=== PATIENT | female | born 1960 | race Caucasian/White ===

== ENCOUNTER → 2017-11-05 10:25 | Outpatient (CLI) | payer OTHER, SELFPAY ==
--- NOTE | 2017-11-05 | DI.CT.S_ITS ---
PROCEDURE: CT CERVICAL SPINE WO CON INDICATIONS: Cervicalgia TECHNIQUE: Noncontrast 3 mm thick sections acquired from the skull base to the T4 level. Sagittal and coronal reformats were then constructed. For radiation dose reduction, the following was used: automated exposure control, adjustment of mA and/or kV according to patient size. COMPARISON: [facility], CR, SPINE CERVICAL MIN 4VW, 02/11/2016, 8:44. [facility], CT, T-SPINE WITHOUT CONTRAST, 10/02/2012, 14:10. [facility], RF, CERVICAL MBB, 10/15/2017, 8:57. [facility], RF, CERVICAL FACET, 09/03/2017, 7:36. [facility], MR, C-SPINE WITHOUT CONTRAST, 09/23/2012, 8:32. [facility] [place], CR, XR CERVICAL SPINE WITH OBLIQUES, 08/01/2017, 9:36. FINDINGS: Image quality: Excellent. Bones: Straightening of cervical curvature. There is grade 1 anterolisthesis of C3 over C4. No fractures or dislocations. Mild degenerative disc disease with posterior disc bulge at C3-C4, C4-C5 and C5-C6. There is severe facet arthropathy at C3-C4 and C4-C5 on the right, and mild facet arthropathy in cervical spine at several other levels bilaterally. Visualized superior ribs are intact. Soft tissues: A 1.6 x 1.0 cm irregular groundglass density is noted in the left upper lobe anteriorly, most likely secondary to subpleural scarring/atelectasis. Prevertebral soft tissues are normal in thickness. No paravertebral hematomas. No apical pneumothoraces. IMPRESSION: 1. Severe right C3-C4 and C4-C5 facet arthropathy. 2. Mild degenerative disc disease. 3. A 1.6 x 1.0 cm irregular groundglass density in the left upper lobe, most likely secondary to subpleural scarring/atelectasis but a followup CT in 3 months is suggested. Dictated by: Abby Garcia M.D. on 11/05/2017 at 14:23 Approved by: Abby Garcia M.D. on 11/06/2017 at 9:46
== END ==
PROVIDERS: Family Provider Family Medicine; PCP Family Medicine; Visit Provider Orthopaedic Surgery
DX: M47.812 Spondylosis without myelopathy or radiculopathy, cervical region (principal); M50.30 Other cervical disc degeneration, unspecified cervical region; R91.8 Other nonspecific abnormal finding of lung field
CPT/HCPCS: 72125

== ENCOUNTER → 2017-11-09 14:07 | Outpatient (CLI) | payer OTHER, SELFPAY ==
--- NOTE | 2017-11-09 | DI.CT.S_ITS ---
PROCEDURE: CT CHEST W CON INDICATIONS: PULMONARY NODULE TECHNIQUE: After the administration of intravenous contrast, 5 mm thick sections acquired from the pulmonary apices to the posterior costophrenic angles. 7 mm thick coronal and sagittal MIP reformats were acquired. For radiation dose reduction, the following was used: automated exposure control, adjustment of mA and/or kV according to patient size. COMPARISON: [facility], CT, CT CERVICAL SPINE WO [facility], 11/05/2017, 10:48. FINDINGS: Image quality: Excellent. Lungs and pleura: No acute air space opacities. The radiodensity seen in the anterior left upper lobe on prior CT cervical spine is no longer present, presumably resolved atelectasis. Stranding densities are present at the lung bases, likely atelectasis or scarring. No pleural effusions or pneumothorax. Central and peripheral airways are patent and normal in caliber. Mediastinum: Heart size is normal. No pericardial effusion. No mediastinal or hilar adenopathy by size criteria. Thoracic aorta and central pulmonary arteries are normal in size. Esophagus is normal in caliber. No hiatal hernia. Bones and chest wall: No suspicious bony lesions. No vertebral body compression fractures. No axillary or supraclavicular adenopathy by size criteria. Thyroid gland appears normal. Abdomen: Visualized upper abdominal solid organs appear normal. Upper abdominal bowel loops are normal in caliber. Small splenule. IMPRESSION: Normal CT chest, left upper lobe density having resolved since prior CT. Mild scarring or atelectasis at the lung bases. Dictated by: Yobany Leong M.D. on 11/09/2017 at 15:06 Approved by: Yobany Leong M.D. on 11/09/2017 at 15:15
== END ==
PROVIDERS: PCP Family Medicine; Visit Provider Family Medicine
DX: R91.1 Solitary pulmonary nodule (principal)
CPT/HCPCS: 71260; Q9967

== ENCOUNTER → 2018-03-22 16:38 | Outpatient (CLI) | payer OTHER, SELFPAY ==
--- NOTE | 2018-03-22 16:41 | DI.MRI.S_ITS ---
PROCEDURE: MR SHOULDER LT WO CON INDICATIONS: PAIN IN LEFT SHOULDER TECHNIQUE: Noncontrast oblique coronal T2 fast spin echo with fat saturation, oblique sagittal T1 spin echo and T2 fast spin echo with fat saturation, axial T1 spin echo and T2 fast spin echo with fat saturation through the shoulder. COMPARISON: [facility], , SHOULDER WITHOUT CONTRAST, 02/22/2016, 16:32. FINDINGS: Image quality: Excellent. Rotator cuff: There is tendinosis and intrasubstance partial-thickness tear involving distal supraspinatus near its insertion on humeral head with extension to the level of the musculotendinous junction. Tendinosis and low-grade bursal surface partial-thickness tear involving distal infraspinatus is seen at its insertion on humeral head. There is distal subscapularis tendinosis. No full-thickness rotator cuff tendon rupture. Sagittal images demonstrate mild supraspinatus muscle atrophy. Bones and bursae: No bone marrow contusions or fractures moderate acromioclavicular joint osteoarthritis is seen. The acromion demonstrates conventional anatomy, without an os acromiale. No pathologic subacromial-subdeltoid or subcoracoid bursal fluid is present. Capsule and soft tissues: In the absence of intra-articular contrast, the glenohumeral ligaments appear intact. There is signal abnormality and contour irregularity involving superior anterior labrum at one to 3:00 position suggestive of superior anterior labral tear. The long head of the biceps tendon demonstrates normal location and morphology. The rotator interval appears normal, without fibrosis. The coracohumeral ligament is normal in thickness. IMPRESSION: 1. Tendinosis and low to moderate grade intrasubstance partial-thickness involving distal supraspinatus extending to musculotendinous junction. Tendinosis and low-grade bursal surface partial-thickness involving distal infraspinatus. Distal subscapularis tendinosis. Mild supraspinatus muscle atrophy. 2. Suggestion of focal superior anterior labral tear from one to 3:00 position. 3. Moderate acromioclavicular joint osteoarthritis. Mild glenohumeral joint osteoarthritis. Dictated by: Steven Pratt M.D. on 03/22/2018 at 17:45 Approved by: Steven Pratt M.D. on 03/22/2018 at 17:49
== END ==
PROVIDERS: PCP Family Medicine; Visit Provider Physical Medicine & Rehabilitation
DX: M75.112 Incomplete rotator cuff tear or rupture of left shoulder, not specified as traumatic (principal); M25.512 Pain in left shoulder; M19.012 Primary osteoarthritis, left shoulder
CPT/HCPCS: 73221

== ENCOUNTER 2023-01-05 18:27 | Emergency (ER) | payer OTHER, SELFPAY ==
[2023-01-05 18:33] VITALS: BP 169/85; PULSE 83; RESP 16; TEMP 36.4; O2SAT 97; BMI 25.0
--- NOTE | 2023-01-05 20:00 | PC.NURSE ---
pt had diverticulitis earlier this month and took the prescribed antibiotics that abd pain improved but the back pain did not now the back pain is more intense
--- NOTE | 2023-01-05 21:10 | ED_ITS ---
HPI - Back Pain/Injury <Birdie Lopez MD - Last Filed: 01/15/23 18:21> General Chief Complaint: Back Pain/Injury Stated Complaint: back pain Time Seen by Provider: 01/05/23 19:24 History of Present Illness HPI Narrative: 62-year-old woman with back and abdominal pain since December 25, was diagnosed with diverticulitis on January 01 and has been on Augmentin after being seen at [facility]. CT scan of the time indicated only diverticulitis according to the patient. She is had small amounts of stool with moderate constipation. Her main complaint at this point is more back pain approximately T10 level with pain radiating out in a dermatomal distribution on the right side and over the last 24 hours is now noticing numbness in that same dermatomal distribution. There are no skin rashes to suggest any type of developing zoster. She denies fever or cough. No dysuria. She has not noticed much change in overall symptoms since starting the Augmentin. Related Data Previous Rx's Medication Instructions Recorded gabapentin 300 mg capsule 300 mg PO BEDTIME #30 caps 01/06/23 lidocaine 5 % topical patch 1 patch topical DAILY PRN pain 01/06/23 (scale score 4-6) #30 ea prednisone 20 mg tablet 40 mg PO DAILY #10 tabs 01/06/23 Allergies Allergy/AdvReac Type Severity Reaction Status Date / Time No Known Drug Allergies Allergy Verified 01/05/23 18:39 Review of Systems <Birdie Lopez MD - Last Filed: 01/15/23 18:21> Review of Systems Narrative: Pertinent positive and negative findings as per HPI Exam <Birdie Lopez MD - Last Filed: 01/15/23 18:21> Initial Vital Signs Initial Vital Signs: Vital Signs Temperature 97.6 F 01/05/23 18:33 Pulse Rate 83 01/05/23 18:33 Respiratory Rate 16 01/05/23 18:33 Blood Pressure 169/85 H 01/05/23 18:33 Pulse Oximetry 97 01/05/23 18:33 Oxygen Delivery Method Room Air 01/05/23 18:33 General: Healthy appearing, in no acute distress. Able to give a complete and coherent history. Well-nourished well-developed HEENT: Moist mucous membranes, normal sclera with reactive pupils, Respiratory: Lungs are clear to auscultation, no wheezing no rales no rhonchi. Full and symmetrical air movement Cardiac: Regular rate and rhythm no murmurs no bruits Abdomen: Soft, nontender, good bowel tones, no flank pain. She has point tenderness at approximately T10 with pain along T10 dermatome on the right side. There are no skin changes Skin: Warm and dry, no rashes Neurologic: Grossly neurologically intact with no obvious asymmetries or abnormalities Extremities: No trauma, well perfused Psych: Cooperative, appropriate insight and affect <Galilea Powell DO - Last Filed: 01/06/23 12:26> Initial Vital Signs Initial Vital Signs: Vital Signs Temperature 97.6 F 01/05/23 18:33 Pulse Rate 83 01/05/23 18:33 Respiratory Rate 16 01/05/23 18:33 Blood Pressure 169/85 H 01/05/23 18:33 Pulse Oximetry 97 01/05/23 18:33 Oxygen Delivery Method Room Air 01/05/23 18:33 Course <Birdie Lopez MD - Last Filed: 01/15/23 18:21> Orders Ordered: Discontinued Medications Hydromorphone HCl (Hydromorphone 0.5 Mg Inj) 0.5 mg IV Q15MIN PRN PRN Reason: Pain, Last Admin: 01/05/23 22:56 Dose: 0.5 mg Documented By: BOB Hydromorphone HCl (Hydromorphone 0.5 Mg Inj) 0.5 mg IV NOW ONE Stop: 01/06/23 07:13 Last Admin: 01/06/23 07:20 Dose: 0.5 mg Documented By: BOB Hydromorphone HCl (Hydromorphone 0.5 Mg Inj) 0.5 mg IV NOW ONE Stop: 01/06/23 09:59 Last Admin: 01/06/23 10:02 Dose: 0.5 mg Documented By: YANELIS Sodium Chloride (Normal Saline 0.9%) 1,000 mls @ 1,000 mls/hr IV BOLUS ONE Stop: 01/05/23 22:18 Last Infusion: 01/05/23 22:47 Dose: 0 mls/hr Documented By: Admin: 01/05/23 21:40 Dose: 1,000 mls/hr Documented By: SAMUEL Ketorolac Tromethamine (Ketorolac 30 Mg/Ml Vial) 15 mg IV NOW ONE Stop: 01/05/23 21:20 Last Admin: 01/05/23 21:40 Dose: 15 mg Documented By: SAMUEL Vital Signs Vital signs: Vital Signs - 8 hr 01/06/23 06:05 01/06/23 06:04 01/06/23 09:18 Pulse Rate 55 L 55 L 68 Respiratory Rate 18 20 20 Blood Pressure 116/71 113/69 Blood Pressure [Left Arm] 116/71 Pulse Oximetry 97 97 94 Oxygen Delivery Method Room Air Room Air 01/06/23 09:30 Pulse Rate 74 Respiratory Rate Blood Pressure 112/68 Blood Pressure [Left Arm] Pulse Oximetry 95 Oxygen Delivery Method <Galilea Powell DO - Last Filed: 01/06/23 12:26> Orders Ordered: Discontinued Medications Hydromorphone HCl (Hydromorphone 0.5 Mg Inj) 0.5 mg IV Q15MIN PRN PRN Reason: Pain, Last Admin: 01/05/23 22:56 Dose: 0.5 mg Documented By: BOB Hydromorphone HCl (Hydromorphone 0.5 Mg Inj) 0.5 mg IV NOW ONE Stop: 01/06/23 07:13 Last Admin: 01/06/23 07:20 Dose: 0.5 mg Documented By: BOB Hydromorphone HCl (Hydromorphone 0.5 Mg Inj) 0.5 mg IV NOW ONE Stop: 01/06/23 09:59 Last Admin: 01/06/23 10:02 Dose: 0.5 mg Documented By: YANELIS Sodium Chloride (Normal Saline 0.9%) 1,000 mls @ 1,000 mls/hr IV BOLUS ONE Stop: 01/05/23 22:18 Last Infusion: 01/05/23 22:47 Dose: 0 mls/hr Documented By: Admin: 01/05/23 21:40 Dose: 1,000 mls/hr Documented By: SAMUEL Ketorolac Tromethamine (Ketorolac 30 Mg/Ml Vial) 15 mg IV NOW ONE Stop: 01/05/23 21:20 Last Admin: 01/05/23 21:40 Dose: 15 mg Documented By: SAMUEL Vital Signs Vital signs: Vital Signs - 8 hr 01/06/23 06:05 01/06/23 06:04 01/06/23 09:18 Pulse Rate 55 L 55 L 68 Respiratory Rate 18 20 20 Blood Pressure 116/71 113/69 Blood Pressure [Left Arm] 116/71 Pulse Oximetry 97 97 94 Oxygen Delivery Method Room Air Room Air 01/06/23 09:30 Pulse Rate 74 Respiratory Rate Blood Pressure 112/68 Blood Pressure [Left Arm] Pulse Oximetry 95 Oxygen Delivery Method MDM - Back Pain/Injury <Birdie Lopez MD - Last Filed: 01/15/23 18:21> Lab Data 01/05/23 21:35 01/05/23 21:35 Labs: Lab Results 01/05/23 01/05/23 01/05/23 Range/Units 21:35 21:35 21:35 WBC 8.8 (4.5-11.0) X10^3/uL RBC 4.40 (4.0-5.2) X10^6/uL Hgb 13.4 (12.0-16.0) g/dL Hct 39.0 (36-46) % MCV 88.5 (80-100) fL MCH 30.4 (26-34) PG MCHC 34.3 (30-36) % RDW 12.4 (11.6-14.8) % Plt Count 332 (150-400) X10^3/uL Neut % (Auto) 42.2 L (50-75) % Lymph % (Auto) 44.1 H (25-40) % [place] % (Auto) 7.3 (3-14) % Eos % (Auto) 5.1 H (2-4) % Baso % (Auto) 1.3 (0-2) % Neut # (Auto) 3700 (2459-4442) /uL Lymph # (Auto) 3900 (7018-6310) /uL [place] # (Auto) 600 (0-900) /uL Eos # (Auto) 400 (0-450) /uL Baso # (Auto) 100 (0-100) /uL ESR 8 (0-20) MM/HR Sodium (137-145) mmol/L Potassium (3.4-5.1) mmol/L Chloride (98-107) mmol/L Carbon Dioxide (22-32) mmol/L BUN (7-17) mg/dL Creatinine (0.52-1.04) mg/dL Estimated GFR (>60) mL/min BUN/Creatinine Ratio (6-22) Glucose (80-110) mg/dL Lactate (0.7-2.1) mmol/L Calcium (8.4-10.2) mg/dL Total Bilirubin (0.2-1.3) mg/dL AST (14-36) IU/L ALT (<35) IU/L Alkaline Phosphatase (38-126) U/L C-Reactive Protein < 0.5 (<1.0) mg/dL Total Protein (6.3-8.2) g/dL Albumin (3.5-5.0) g/dL Globulin (1.7-4.1) g/dL Albumin/Globulin Ratio (1.0-2.8) Procalcitonin (<0.5) ng/mL 01/05/23 01/05/23 Range/Units 21:35 21:35 WBC (4.5-11.0) X10^3/uL RBC (4.0-5.2) X10^6/uL Hgb (12.0-16.0) g/dL Hct (36-46) % MCV (80-100) fL MCH (26-34) PG MCHC (30-36) % RDW (11.6-14.8) % Plt Count (150-400) X10^3/uL Neut % (Auto) (50-75) % Lymph % (Auto) (25-40) % [place] % (Auto) (3-14) % Eos % (Auto) (2-4) % Baso % (Auto) (0-2) % Neut # (Auto) (1241-2214) /uL Lymph # (Auto) (9245-4397) /uL [place] # (Auto) (0-900) /uL Eos # (Auto) (0-450) /uL Baso # (Auto) (0-100) /uL ESR (0-20) MM/HR Sodium 137 (137-145) mmol/L Potassium 4.0 (3.4-5.1) mmol/L Chloride 103 (98-107) mmol/L Carbon Dioxide 27 (22-32) mmol/L BUN 16 (7-17) mg/dL Creatinine 0.65 (0.52-1.04) mg/dL Estimated GFR > 60 (>60) mL/min BUN/Creatinine Ratio 24.6 H (6-22) Glucose 94 (80-110) mg/dL Lactate 0.7 (0.7-2.1) mmol/L Calcium 9.0 (8.4-10.2) mg/dL Total Bilirubin 0.5 (0.2-1.3) mg/dL AST 28 (14-36) IU/L ALT 26 (<35) IU/L Alkaline Phosphatase 64 (38-126) U/L C-Reactive Protein (<1.0) mg/dL Total Protein 7.5 (6.3-8.2) g/dL Albumin 4.3 (3.5-5.0) g/dL Globulin 3.2 (1.7-4.1) g/dL Albumin/Globulin Ratio 1.3 (1.0-2.8) Procalcitonin 0.04 (<0.5) ng/mL Urine Dip Bedside Urine Glucose Negative Bedside Urine Bilirubin - Negative Bedside Urine Ketone - Negative Urine Specific [place] 1.01 Bedside Urine Occult Blood - Negative Bedside Urine pH 6 Bedside Urine Protein - Negative Bedside Urine Urobilinogen - Negative Bedside Urine Nitrite - Negative Bedside Urine Leukocytes - Negative Esterase MDM Narrative Medical decision making narrative: CC: T10 point tenderness with dermatomal pain radiating along the right side now with increasing paresthesia same finding, acute uncertain diagnosis unknown prognosis Complicating co-morbidities: Concurrent treatment for diverticulitis Data collected from: patient, Differential considered: Diverticulitis, appendicitis, kidney stone, shingles, diskitis, epidural abscess Exam documented above, pertinent findings include: Significant midline tenderness around T10 with dermatomal distribution of pain now with paresthesia no skin findings. Minimal left lower quadrant tenderness. Lab Test results independently reviewed as above. Pertinent findings: CBC is unremarkable Chemistries are reassuring Procalcitonin is low C-reactive protein is low Sed rate is low Imaging studies independently reviewed: CT scan of the abdomen does not show any acute abnormalities specifically no obvious diverticulitis no fractures, no specific abnormalities of lower thoracic or lumbar spine Treatments: Parenteral Dilaudid Re-evaluations:1230am findings reviewed with patient. Clarification on history, she is had this severe T10 radicular pain for 10 days. The recent diverticulitis diagnosis was a result of a CT scan done for the right-sided T10 pain. At this point if it were shingles a rash should have developed. The pain is getting progressively worse to the point she is now having paresthesias, point tenderness at T10 and unable to lay flat with increasing difficulty in moving. With shared decision making we opted to proceed with MRI to completely rule out diskitis and epidural abscess. She understands that she will be in the emergency room for a number of hours until MRI is available 1st thing in the morning. She did find that the small dose of Dilaudid was more effective than the oral oxycodone that she is been taking and she is at least able to relax slightly. Discussion: <Galilea Powell, DO - Last Filed: 01/06/23 12:26> Lab Data Labs: Lab Results 01/05/23 01/05/23 01/05/23 Range/Units 21:35 21:35 21:35 WBC 8.8 (4.5-11.0) X10^3/uL RBC 4.40 (4.0-5.2) X10^6/uL Hgb 13.4 (12.0-16.0) g/dL Hct 39.0 (36-46) % MCV 88.5 (80-100) fL MCH 30.4 (26-34) PG MCHC 34.3 (30-36) % RDW 12.4 (11.6-14.8) % Plt Count 332 (150-400) X10^3/uL Neut % (Auto) 42.2 L (50-75) % Lymph % (Auto) 44.1 H (25-40) % [place] % (Auto) 7.3 (3-14) % Eos % (Auto) 5.1 H (2-4) % Baso % (Auto) 1.3 (0-2) % Neut # (Auto) 3700 (1586-9993) /uL Lymph # (Auto) 3900 (4526-1636) /uL [place] # (Auto) 600 (0-900) /uL Eos # (Auto) 400 (0-450) /uL Baso # (Auto) 100 (0-100) /uL ESR 8 (0-20) MM/HR Sodium (137-145) mmol/L Potassium (3.4-5.1) mmol/L Chloride (98-107) mmol/L Carbon Dioxide (22-32) mmol/L BUN (7-17) mg/dL Creatinine (0.52-1.04) mg/dL Estimated GFR (>60) mL/min BUN/Creatinine Ratio (6-22) Glucose (80-110) mg/dL Lactate (0.7-2.1) mmol/L Calcium (8.4-10.2) mg/dL Total Bilirubin (0.2-1.3) mg/dL AST (14-36) IU/L ALT (<35) IU/L Alkaline Phosphatase (38-126) U/L C-Reactive Protein < 0.5 (<1.0) mg/dL Total Protein (6.3-8.2) g/dL Albumin (3.5-5.0) g/dL Globulin (1.7-4.1) g/dL Albumin/Globulin Ratio (1.0-2.8) Procalcitonin (<0.5) ng/mL 01/05/23 01/05/23 Range/Units 21:35 21:35 WBC (4.5-11.0) X10^3/uL RBC (4.0-5.2) X10^6/uL Hgb (12.0-16.0) g/dL Hct (36-46) % MCV (80-100) fL MCH (26-34) PG MCHC (30-36) % RDW (11.6-14.8) % Plt Count (150-400) X10^3/uL Neut % (Auto) (50-75) % Lymph % (Auto) (25-40) % [place] % (Auto) (3-14) % Eos % (Auto) (2-4) % Baso % (Auto) (0-2) % Neut # (Auto) (6819-5170) /uL Lymph # (Auto) (2063-1171) /uL [place] # (Auto) (0-900) /uL Eos # (Auto) (0-450) /uL Baso # (Auto) (0-100) /uL ESR (0-20) MM/HR Sodium 137 (137-145) mmol/L Potassium 4.0 (3.4-5.1) mmol/L Chloride 103 (98-107) mmol/L Carbon Dioxide 27 (22-32) mmol/L BUN 16 (7-17) mg/dL Creatinine 0.65 (0.52-1.04) mg/dL Estimated GFR > 60 (>60) mL/min BUN/Creatinine Ratio 24.6 H (6-22) Glucose 94 (80-110) mg/dL Lactate 0.7 (0.7-2.1) mmol/L Calcium 9.0 (8.4-10.2) mg/dL Total Bilirubin 0.5 (0.2-1.3) mg/dL AST 28 (14-36) IU/L ALT 26 (<35) IU/L Alkaline Phosphatase 64 (38-126) U/L C-Reactive Protein (<1.0) mg/dL Total Protein 7.5 (6.3-8.2) g/dL Albumin 4.3 (3.5-5.0) g/dL Globulin 3.2 (1.7-4.1) g/dL Albumin/Globulin Ratio 1.3 (1.0-2.8) Procalcitonin 0.04 (<0.5) ng/mL Urine Dip Bedside Urine Glucose Negative Bedside Urine Bilirubin - Negative Bedside Urine Ketone - Negative Urine Specific [place] 1.01 Bedside Urine Occult Blood - Negative Bedside Urine pH 6 Bedside Urine Protein - Negative Bedside Urine Urobilinogen - Negative Bedside Urine Nitrite - Negative Bedside Urine Leukocytes - Negative Esterase Imaging Data CT scan - abdomen/pelvis: Radiologist's Impression: PROCEDURE:? CT ABDOMEN PELVIS W CON ? INDICATIONS:? T10 point tenderness, dermatomal pain R t10, diverticulitis ? TECHNIQUE:? After the administration of IV contrast, axial sections were acquired from the lung bases to the pubic symphysis.? Coronal and sagittal reformats were performed.? For radiation dose reduction, the following was used:? automated exposure control, adjustment of mA and/or kV according to patient size. ? COMPARISON:? None. ? FINDINGS:? Image quality:? Excellent.? ? Lung bases:? There is mild atelectasis and scarring in the lung bases.? ? Heart:? Heart is normal in size. ? ? ABDOMEN: Liver:? No mass lesion. Gallbladder:? Within normal limits without calcified gallstones.? ? Biliary ducts:? No biliary ductal dilatation.? ? Pancreas:? Unremarkable.? ? Spleen:? Normal in size.? ? Adrenal Glands:? No adrenal nodules.? ? Kidneys and Ureters:? No hydronephrosis.? ? ? Stomach and Bowel:? There are surgical sutures along the stomach.? Stomach, small bowel loops, and colon are normal in caliber and wall thickness.? No pericecal inflammatory changes to suggest appendicitis.? There is colonic diverticulosis without acute diverticulitis. Peritoneum:? No abnormal intraperitoneal fluid.? No free air.? ? Ventral Wall: ? No hernia.? Abdominal Nodes:? No retroperitoneal or mesenteric adenopathy by size criteria.? Vessels:? Aorta and inferior vena cava are normal in size.? ? PELVIS: Pelvic Organs:? Unremarkable.? ? Bladder:? Unremarkable.? ? Pelvic Nodes: No enlarged lymph nodes.? Miscellaneous: No inguinal hernias are seen. ? ? ? Bones:? No fractures or subluxation within the visualized lower thoracic or lumbar spine. ?There is a sclerotic focus within the left ilium which is nonspecific but likely represents a bone island. ? IMPRESSION:? ? 1. No definite acute intra-abdominal abnormality. ? 2. Colonic diverticulosis without acute diverticulitis. ? 3. No fractures of the visualized lower thoracic or lumbar spine. ? ? Dictated by: Stevie Ayoub M.D. on 01/05/2023 at 23:27 MR lumbar: Radiologist's Impression: see PACS MR thoracic: Radiologist's Impression: see pacs MDM Narrative Medical decision making narrative: CC: T10 point tenderness with dermatomal pain radiating along the right side now with increasing paresthesia same finding, acute uncertain diagnosis unknown prognosis Complicating co-morbidities: Concurrent treatment for diverticulitis Data collected from: patient, Differential considered: Diverticulitis, appendicitis, kidney stone, shingles, diskitis, epidural abscess Exam documented above, pertinent findings include: Significant midline tenderness around T10 with dermatomal distribution of pain now with paresthesia no skin findings. Minimal left lower quadrant tenderness. Lab Test results independently reviewed as above. Pertinent findings: CBC is unremarkable Chemistries are reassuring Procalcitonin is low C-reactive protein is low Sed rate is low Imaging studies independently reviewed: CT scan of the abdomen does not show any acute abnormalities specifically no obvious diverticulitis no fractures, no specific abnormalities of lower thoracic or lumbar spine Treatments: Parenteral Dilaudid Re-evaluations:1230am findings reviewed with patient. Clarification on history, she is had this severe T10 radicular pain for 10 days. The recent diverticulitis diagnosis was a result of a CT scan done for the right-sided T10 pain. At this point if it were shingles a rash should have developed. The pain is getting progressively worse to the point she is now having paresthesias, point tenderness at T10 and unable to lay flat with increasing difficulty in moving. With shared decision making we opted to proceed with MRI to completely rule out diskitis and epidural abscess. She understands that she will be in the emergency room for a number of hours until MRI is available 1st thing in the morning. She did find that the small dose of Dilaudid was more effective than the oral oxycodone that she is been taking and she is at least able to relax slightly. Discussion: Patient signed out to me by Dr. Lopez I have seen evaluated patient myself. Sitting up eating breakfast looking better. MRI lumbar spine no acute abnormalities but multilevel multifactorial lumbar spondylosis most severe at L4-L5 region. Patient has no bowel or bladder changes she has no leg weakness. Discussed with her knees follow-up with orthopedic surgery. Will trend up some medications to try at home. Will add gabapentin prednisone and lidocaine patches. She is not liking the oxycodone she does not feel like it is helping. Discharge Plan Departure Patient Disposition: Home Clinical Impression: Spondylosis of lumbar spine Instructions: DI for Back Strain or Sprain Activity Restrictions/Additional Instructions: *You have been diagnosed with spondylosis L4-L5 *What to do: At this time I do recommend seeing orthopedic surgery. Increasing activity as tolerated. Physical therapy may help as well please talk to your PCP about this. *Continue to take medications as directed Gabapentin 300 mg at night can be titrated up with guidance of a provider Prednisone 40 mg twice a day for 5 days (do not combine with ibuprofen) Tylenol 1000 mg every 6 hours needed for [id number] pain A lidocaine patch applied to specific area leave on 12 hours then remove *Follow up with your primary care provider in 2-3 days or call [phone] *Return to ER if you should have increasing leg weakness loss of bowel or bladde r increasing pain or any new, worsening or concerning symptoms Prescriptions: New prednisone 20 mg tablet 40 mg PO DAILY Qty: 10 0RF lidocaine 5 % adhesive patch,medicated 1 patch topical DAILY PRN (Reason: pain (scale score 4-6)) Qty: 30 0RF Rx Instructions: leave on most painful area for up to 12 hrs then remove gabapentin 300 mg capsule 300 mg PO BEDTIME Qty: 30 0RF Referrals: Prince Ho MD [Physician] - Jeffery Finley DO [Primary Care Provider] - Stand Alone Forms: Patient Portal/API ED Sign-out <Birdie Lopez MD - Last Filed: 01/15/23 18:21> Cosign ED Attending Cosignature Attestation: I was immediately available in the department for consultation throughout this patient's visit. Birdie Lopez MD
--- NOTE | 2023-01-05 21:20 | DI.CT.S_ITS ---
PROCEDURE: CT ABDOMEN PELVIS W CON INDICATIONS: T10 point tenderness, dermatomal pain R t10, diverticulitis TECHNIQUE: After the administration of IV contrast, axial sections were acquired from the lung bases to the pubic symphysis. Coronal and sagittal reformats were performed. For radiation dose reduction, the following was used: automated exposure control, adjustment of mA and/or kV according to patient size. COMPARISON: None. FINDINGS: Image quality: Excellent. Lung bases: There is mild atelectasis and scarring in the lung bases. Heart: Heart is normal in size. ABDOMEN: Liver: No mass lesion. Gallbladder: Within normal limits without calcified gallstones. Biliary ducts: No biliary ductal dilatation. Pancreas: Unremarkable. Spleen: Normal in size. Adrenal Glands: No adrenal nodules. Kidneys and Ureters: No hydronephrosis. Stomach and Bowel: There are surgical sutures along the stomach. Stomach, small bowel loops, and colon are normal in caliber and wall thickness. No pericecal inflammatory changes to suggest appendicitis. There is colonic diverticulosis without acute diverticulitis. Peritoneum: No abnormal intraperitoneal fluid. No free air. Ventral Wall: No hernia. Abdominal Nodes: No retroperitoneal or mesenteric adenopathy by size criteria. Vessels: Aorta and inferior vena cava are normal in size. PELVIS: Pelvic Organs: Unremarkable. Bladder: Unremarkable. Pelvic Nodes: No enlarged lymph nodes. Miscellaneous: No inguinal hernias are seen. Bones: No fractures or subluxation within the visualized lower thoracic or lumbar spine. There is a sclerotic focus within the left ilium which is nonspecific but likely represents a bone island. IMPRESSION: 1. No definite acute intra-abdominal abnormality. 2. Colonic diverticulosis without acute diverticulitis. 3. No fractures of the visualized lower thoracic or lumbar spine. Dictated by: Stevie Ayoub M.D. on 01/05/2023 at 23:27 Approved by: Stevie Ayoub M.D. on 01/05/2023 at 23:32
[2023-01-05] MEDS: SODIUM CHLORIDE 0.9% 1,000 ML 1000 ML IV (21:40)
[2023-01-05] MEDS: KETOROLAC 30 MG/ML VIAL 15 MG IV (21:40)
[2023-01-05 21:47] LABS: Add Manual Diff / Slide Review NO; Basophils Absolute Auto 100 /uL (0-100); Basophils Percent Auto 1.3 % (0-2); Eosinophils Absolute Auto 400 /uL (0-450); Eosinophils Percent Auto 5.1 % (2-4); Hemoglobin 13.4 g/dL (12.0-16.0); Lymphocytes Absolute Auto 3900 /uL (1100-4500); Lymphocytes Percent Auto 44.1 % (25-40); Mean Corpuscular HGB Conc 34.3 % (30-36); Mean Corpuscular Hemoglobin 30.4 PG (26-34); Mean Corpuscular Volume 88.5 fL (80-100); Monocytes Absolute Auto 600 /uL (0-900); Monocytes Percent Auto 7.3 % (3-14); Neutrophils Absolute Auto 3700 /uL (1500-7000); Neutrophils Percent Auto 42.2 % (50-75); Platelet Count 332 X10^3/uL (150-400); Red Cell Distribution Width 12.4 % (11.6-14.8); White Blood Cell Count 8.8 X10^3/uL (4.5-11.0)
[2023-01-05 21:56] LABS: Lactate (Lactic Acid) 0.7 mmol/L (0.7-2.1)
[2023-01-05 21:58] LABS: Alanine Aminotransferase 26 IU/L (<35); Albumin 4.3 g/dL (3.5-5.0); Albumin Globulin Ratio 1.3 (1.0-2.8); Alkaline Phosphatase 64 U/L (38-126); Aspartate Aminotransferase 28 IU/L (14-36); BUN Creatinine Ratio 24.6 (6-22); Bilirubin Total 0.5 mg/dL (0.2-1.3); Blood Urea Nitrogen 16 mg/dL (7-17); Carbon Dioxide 27 mmol/L (22-32); Chloride 103 mmol/L (98-107); Estimated Glomerular Filt Rate > 60 mL/min (>60); Globulin 3.2 g/dL (1.7-4.1); Glucose 94 mg/dL (80-110); HEMOLYSIS < 15 (0-50); Sodium 137 mmol/L (137-145); Total Protein 7.5 g/dL (6.3-8.2)
[2023-01-05 22:14] LABS: Procalcitonin 0.04 ng/mL (<0.5)
[2023-01-05 22:20] LABS: Erythrocyte Sedimentation Rate 8 MM/HR (0-20)
[2023-01-05 22:26] VITALS: BP 140/77; PULSE 70; O2SAT 99
[2023-01-05 22:26] LABS: C-Reactive Protein Quant < 0.5 mg/dL (<1.0)
[2023-01-05 22:30] VITALS: BP 143/80; PULSE 66; O2SAT 100
[2023-01-05] MEDS: HYDROMORPHONE 0.5 MG INJ IV (22:56)
[2023-01-05 23:00] VITALS: PULSE 78; O2SAT 99
[2023-01-05 23:02] VITALS: BP 131/75; PULSE 72; O2SAT 98
[2023-01-05 23:30] VITALS: BP 128/79; PULSE 64; O2SAT 95
[2023-01-06] VITALS (8 sets, daily range): BP systolic 112–133; BP diastolic 68–88; PULSE 55–74; RESP 18–20; O2SAT 94–98
--- NOTE | 2023-01-06 00:37 | DI.MRI.S_ITS ---
PROCEDURE: MR LUMBAR SPINE WO/W CON INDICATIONS: None provided; please see clinical note. TECHNIQUE: Noncontrast sagittal T1 spin echo and T2 fast spin echo, sagittal STIR, axial T1 and T2 fast spin echo through the lumbar spine. In cases with scoliosis, additional coronal T2 fast spin echo may be performed. After the administration of contrast, sagittal and axial T1 spin echo with fat saturation through the lumbar spine. COMPARISON: [facility], CT, CT ABDOMEN PELVIS W CON, 01/05/2023, 22:08. FINDINGS: Image quality: Excellent. Alignment and curvature: There is grade 1 anterolisthesis of L4 on L5. Marrow: Marrow is of normal overall signal. No acute vertebral body compression fractures. No suspicious marrow enhancement. Spinal cord: Conus medullaris terminates at the L1-2 level. Visualized spinal cord demonstrates normal signal, without suspicious enhancement. Paraspinous soft tissues: No paravertebral masses or abnormal enhancement. T12-L1: No significant neuroforaminal or spinal canal stenosis. L1-L2: No significant neuroforaminal or spinal canal stenosis. L2-L3: Diffuse disc bulge. Bilateral facet arthropathy. Ligamentum flavum hypertrophy. Mild epidural lipomatosis. No significant spinal canal stenosis. Minimal bilateral neuroforaminal stenosis. L3-L4: Moderate symmetric disc bulge. Moderate bilateral facet arthropathy. Ligamentum flavum hypertrophy. Mild epidural lipomatosis. Mild spinal canal stenosis. Mild bilateral neuroforaminal stenosis. L4-L5: Severe bilateral facet arthropathy. Ligamentum flavum hypertrophy. Moderate symmetric disc bulge. Moderate-severe spinal canal stenosis. Moderate left and moderate-severe right bilateral neuroforaminal stenosis. L5-S1: Mild bilateral facet arthropathy. No significant neuroforaminal or spinal canal stenosis. IMPRESSION: Lumbar spine without acute abnormalities. No areas of abnormal enhancement. No epidural abscess identified. Multilevel, multifactorial lumbar spondylosis as detailed above by vertebral body level. Findings are most severe at L4-5. Dictated by: Trent Tapia M.D. on 01/06/2023 at 8:14 Approved by: Trent Tapia M.D. on 01/06/2023 at 8:21
--- NOTE | 2023-01-06 00:37 | DI.MRI.S_ITS ---
PROCEDURE: MR THORACIC SPINE WO/W CON INDICATIONS: None provided TECHNIQUE: Noncontrast sagittal T1 spin echo and T2 fast spin echo, sagittal STIR, axial T1 and T2 fast spin echo through the thoracic spine. After the administration of contrast, axial and sagittal T1 spin echo with fat saturation through the thoracic spine. COMPARISON: None. FINDINGS: Image quality: Excellent. Alignment and curvature: There is normal bony alignment. Marrow: Marrow is of normal overall signal. No acute vertebral body compression fractures. Spinal cord: Visualized spinal cord is of normal signal and size, without abnormal enhancement. Paraspinous soft tissues: No paravertebral masses or abnormal enhancement. Miscellaneous: Small posterior disc protrusions at T6-7, T7-8, and T8-9 with minimal focal effacement of the anterior thecal sac. Central canal and foramina appear widely patent at all scanned levels. IMPRESSION: Thoracic spine without acute abnormalities. No acute fracture seen. No areas of abnormal enhancement. Small posterior disc protrusions at T6-7, T7-8, and T8-9 which causes minimal effacement anterior thecal sac. No associated cord signal abnormalities or significant neural foraminal or spinal canal stenosis. No areas of abnormal enhancement. No evidence for epidural abscess. Dictated by: Trent Tapia M.D. on 01/06/2023 at 8:07 Approved by: Trent Tapia M.D. on 01/06/2023 at 8:13
[2023-01-06] MEDS: HYDROMORPHONE 0.5 MG INJ IV ×2 (07:20→10:02)
== END 2023-01-06 10:26 | disposition home or self-care (01) ==
PROVIDERS: Emergency Medicine; Emergency Provider Emergency Medicine; PCP Family Medicine
DX: M47.816 Spondylosis without myelopathy or radiculopathy, lumbar region (principal); R20.0 Anesthesia of skin; R10.9 Unspecified abdominal pain; R21 Rash and other nonspecific skin eruption
CPT/HCPCS: 36415; 72157; 72158; 74177; 80053; 81003; 83605; 84145; 85025; 85651; 86140; 87040; 96361; 96374; 96375; 96376; 99284; A9579; J1170; J1885; Q9967

== ENCOUNTER → 2023-06-01 08:37 | Outpatient (CLI) | payer OTHER, SELFPAY ==
[2023-06-01 09:25] LABS: Add Manual Diff / Slide Review NO; Basophils Absolute Auto 100 /uL (0-100); Basophils Percent Auto 0.9 % (0-2); Eosinophils Absolute Auto 300 /uL (0-450); Eosinophils Percent Auto 5.8 % (2-4); Hematocrit 37.4 % (36-46); Hemoglobin 12.8 g/dL (12.0-16.0); Lymphocytes Absolute Auto 2300 /uL (1100-4500); Lymphocytes Percent Auto 42.9 % (25-40); Mean Corpuscular HGB Conc 34.4 % (30-36); Mean Corpuscular Hemoglobin 30.9 PG (26-34); Mean Corpuscular Volume 89.9 fL (80-100); Monocytes Absolute Auto 500 /uL (0-900); Monocytes Percent Auto 8.7 % (3-14); Neutrophils Absolute Auto 2300 /uL (1500-7000); Neutrophils Percent Auto 41.7 % (50-75); Platelet Count 318 X10^3/uL (150-400); Red Blood Cell Count 4.15 X10^6/uL (4.0-5.2); Red Cell Distribution Width 12.1 % (11.6-14.8); White Blood Cell Count 5.4 X10^3/uL (4.5-11.0)
[2023-06-01 09:48] LABS: BUN Creatinine Ratio 29.9 (6-22); Blood Urea Nitrogen 23 mg/dL (7-17); Calcium 9.8 mg/dL (8.4-10.2); Carbon Dioxide 29 mmol/L (22-32); Chloride 102 mmol/L (98-107); Estimated Glomerular Filt Rate > 60 mL/min (>60); Glucose 94 mg/dL (80-110); HEMOLYSIS < 15 (0-50); Potassium 4.2 mmol/L (3.4-5.1); Sodium 140 mmol/L (137-145)
== END ==
PROVIDERS: PCP Internal Medicine; Referring Provider Orthopaedic Surgery Orthopaedic Surgery of the Spine; Visit Provider Orthopaedic Surgery Orthopaedic Surgery of the Spine
DX: Z01.818 Encounter for other preprocedural examination (principal); Z01.812 Encounter for preprocedural laboratory examination
CPT/HCPCS: 36415; 80048; 85025; 93005; 93010

== ENCOUNTER 2023-08-27 07:50 | Day surgery (SDC) | payer OTHER, SELFPAY ==
[2023-08-20 09:35] VITALS: BMI 29.9
[2023-08-27] VITALS (22 sets, daily range): BP systolic 99–136; BP diastolic 55–87; PULSE 74–105; RESP 12–18; TEMP 36.1–36.4; O2SAT 90–99; BMI 29.9
[2023-08-27] MEDS: LACTATED RINGERS 1,000 ML 42 ML IV ×2 (08:21→11:15)
--- NOTE | 2023-08-27 09:27 | PM.PREOP ---
Pre-operative Note Interval Note History & Physical reviewed/Exam performed by Physician: Yes Changes to H&P: No
[2023-08-27] MEDS: CEFAZOLIN 2 GM/100 ML PREMIX 100 ML IV ×2 (10:18→17:39)
--- NOTE | 2023-08-27 10:25 | SUR.OPER ---
Prone on spine table, head in foam head support, padded chest and pelvic supports, gel pad at knees, lower legs supported by pillows; nipples, genitalia and toes free of pressure, arms secured on foam padded arm boards at <90 degrees abduction. Tape over blanket at thigh secured to table.
[2023-08-27] MEDS: BUPIVACAINE 0.25% (PF) 30 ML, EPINEPHrine 0.15 MG INJ (10:31)
[2023-08-27] MEDS: BUPIVACAINE LIPOSOME 266 MG/20 ML VIAL INJ (10:32)
--- NOTE | 2023-08-27 12:24 | P.OP_ITS ---
Operative Date/Time/Diagnoses Date of procedure: 08/27/23 Time of procedure: 10:00 Pre-op diagnosis: 1. L4-5 spondylolisthesis 2. L4-5 spinal stenosis with radiculopathy Post-op diagnosis: same Procedure & Clinicians Procedure: 1. L4-5 Postero-lateral and posterior interbody fusion 2. L4-5 interbody cage placement. 3. L4-5 decompressive laminectomy with bilateral facetecomies 4. L4-5 Posterior non-segmental instrumentation 5. Stark of bone marrow from iliac crest 6. Utilization of microsurgical technique and operating microscope Same procedure as scheduled: Yes Indications: Patient has been having chronic back pain and worsening lumbar radiculopathy. Patient failed multiple conservative management with worsening pain weakness and numbness in her lower extremity. Patient has been having difficulty performing activity of daily living. After discussing risks benefits of treatment options, patient elected proceed with surgery. Surgeon: Prince Ho Intern Architect: Nanci Rowe Click Yes if Unassisted: No Anesthesia Type: General Operative Notes Closure Type: primary Specimen(s): none sent Prosthetic devices, grafts, tissues, transplants, or devices: Globus revolve screws, Rise cage Estimated Blood Loss (mL): 50 Blood products transfused: none Procedure in detail: Patient was seen in the preoperative area. Risks and benefits of the surgery was discussed with the patient. Informed consent was obtained from the patient and placed in the chart. Surgical site was marked. Patient was taken to the operative room. General anesthesia was administered. Prophylactic antibiotic was given to the patient less than 30 min before the incision was made. Patient was placed into a prone position on the Genaro table. Patient's back was then prepped and draped in the sterile fashion. Time-out was performed at this time. Using AP and lateral C-arm imaging the interval between L4-5 was identified and marked on patient's back. A 2 inch incision 2 in from midline was made on the left side first. The fascia was incised in line with skin incision. Globus MARS retractors was placed inside the incision and docked onto the L4 lamina. Using microsurgical technique and operating microscope, a on 4 laminectomy and L4-5 facetectomy was performed using a Kerrison rongeur. The laminectomy and facetectomy was performed in order to decompress patient's cauda equina as well as the nerve roots exiting at the L4-5 level. The disc space at L4-5 was identified. And a total diskectomy was performed at L4-5 level. The endplates were decorticated using a rasp and shaver. The total diskectomy and decortication was performed at L4-5 level in order to to accomplish a L4-5 fusion. The local bone from the laminectomy and facetectomy was saved for local bone grafting. After the total diskectomy and decortication was completed, DBM bone graft material was combined with local bone that was harvested earlier. At this time, a separate skin is incision was made over the iliac crest. A Jamshidi needle was inserted into the iliac crest through a separate skin incision. 5 cc of bone marrow aspiration was obtained through the separate skin incision using a Jamshidi needle from the iliac crest. The bone marrow aspiration was combined with local bone and the DBM bone grafting material. The bone grafting material was placed into the L4-5 interbody space along with a expandable cage. The cage was expanded to its maximum height using the torque limiting screwdriver. At this time a mirror image incision was made on the right side. The fascia was incised in line with the skin incision. Globus MARS retractor was inserted and docked onto the L4-5 posterolateral gutter. Using the power drill, posterior- lateral decortication was performed at L4-5 level until bleeding cortical bone was identified. The remaining bone grafting material was placed into the L4-5 posterior lateral gutter he order to accomplish posterolateral fusion at the L4- 5 level. Using the double C-arm technique, pedicle screws were placed into the L4-5 pedicles bilaterally. This was done by placing the Jamshidi needle into the pedicles, then placing the guidewires over the Jamshidi needle, and finally placing the cannulated screws over the guidewires bilaterally. After the pedicle screws were placed, 2 titanium rods was locked into the heads of the pedicle screws using locking caps and torque limiting screwdriver. After all the hardware was placed, and confirmed with AP and lateral C-arm imaging, the wound was then irrigated with sterile normal saline and packed with Ray-Annette gauze for 3 min to accomplish hemostasis. After the gauze was removed the deep fascia was closed with #1 Vicryl suture. The subcutaneous layer was closed with 2-0 Vicryl. The skin was closed with skin timmy. Patient tolerated the procedure well. There were no complications. The Operation could not have been safely performed without compromising the technical result or length of the procedure, without the assistance of a skilled operating room surgical technologist. The operating room surgical technologist was medically necessary for proper positioning, retraction and manipulation of instruments, proper exposure, surgical preparation, and manipulation of tissue. Neuro monitoring was used throughout the entire procedure. The monitoring signal was stable throughout entire procedure. Complications: none Post-operative Condition: stable Disposition: PACU Plan for aftercare: Admit to inpatient hospital
--- NOTE | 2023-08-27 12:30 | DI.RAD.S_ITS ---
PROCEDURE: XR LUMBAR SPINE 2-3V INDICATIONS: L4-5 TLIF TECHNIQUE: 2 intraoperative views of the lumbar spine were acquired. COMPARISON: [facility], CR, XR LUMBAR SPINE FLEXION EXTENSION, 04/09/2023, 14:50. [facility], RF, LUMBAR SPINE INTERIAMINAR, 01/23/2023, 8:39. FINDINGS: L4-L5 pedicle screw fixation with intervertebral body spacer. Hardware projects in the expected location. IMPRESSION: Intraoperative guidance provided. Dictated by: Ramu Mauricio M.D. on 08/27/2023 at 12:39 Approved by: Ramu Mauricio M.D. on 08/27/2023 at 12:39
[2023-08-27] MEDS: fentaNYL 100 MCG/2 ML INJ IV ×2 (12:39→12:45)
[2023-08-27] MEDS: hydrOXYzine 50 MG/ML INJ 25 MG IM (12:39)
[2023-08-27] MEDS: OXYCODONE/ACETAMINOPHEN 5/325 TABLET 1 TAB PO (12:44)
[2023-08-27] MEDS: HYDROMORPHONE 1 MG INJ IV ×2 (12:55→13:05)
[2023-08-27] MEDS: diazePAM 5 MG TABLET PO (13:23)
[2023-08-27] MEDS: LACTATED RINGERS 1,000 ML 125 ML IV ×2 (14:33→22:05)
[2023-08-27] MEDS: ACETAMINOPHEN 325 MG TABLET 650 MG PO ×2 (15:11→20:12)
[2023-08-27] MEDS: TRAMADOL 50 MG TABLET PO ×2 (15:11→19:47)
--- NOTE | 2023-08-27 15:38 | OT.IP.EVAL ---
Current Diagnoses Spondylolisthesis, lumbar region (08/27/23) Surgery Performed Operation Date: 08/27/23 09:30 Actual Procedures p L4-5 TLIF - Prince Ho MD Past Medical History (Last Updated 08/20/23 @ 10:15 by Namrata Mendosa, RN) Acid reflux Diverticulitis Fibromyalgia History of COVID-19 (2021) History of hemochromatosis RAY (obstructive sleep apnea) Raynaud's phenomenon Spinal stenosis Surgical History (Last Updated 08/20/23 @ 10:11 by Namrata Mendosa RN) History of partial hysterectomy Hx of abdominal surgery (07/2022) Hx of tonsillectomy Occupational Therapy Inpatient Evaluation/Re-Eval M1 PT/OT-IP Prior Functional Status Start: 08/27/23 15:36 Freq: NEEDED Status: Active Protocol: Document 08/27/23 15:36 CGR (Rec: 08/27/23 15:47 CGR [id number]) Medical Review Prior Functional Status Medical History Reviewed Yes Communication Pt is an effective verbal communicator Mobility and Gait Pt was IND without AD at baseline. 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 Social History Household Members none Living Arrangements House Number of Floors (Floors) Two Floors Number of Stairs To Enter/Railing? 2 steps to enter without rails . 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 M2 OT-IP Current Condition Start: 08/27/23 15:36 Freq: Status: Active Protocol: Document 08/27/23 15:36 CGR (Rec: 08/27/23 15:47 CGR [id number]) Occupational Therapy Current Condition Current Condition Evaluation Date 08/27/23 Treatment Diagnosis L4-5 TLIF Diagnosis Onset Date 08/27/23 Post Operative Precautions Lumbar Precautions Log Roll,No Twisting,Limit Bending,Lifting Restriction of 10 lbs,Gait Belt above Incisional Area Other Precautions Pt states that she has a brace that Dr. Ho gave her for at home because she has big dogs. M3 OT- IP Subjective and Pain Start: 08/27/23 15:36 Freq: Status: Active Protocol: Document 08/27/23 15:36 CGR (Rec: 08/27/23 15:47 CGR [id number]) OT- Subjective Occupational Therapy Visit Type Type Initial Evaluation Visit Start Time 14:52 Visit Stop Time 15:38 Notes Pt's sisters present when OT entered and throughout session . OT Pain Assessment Pain When Pain Assessed At Rest Pain Present Pain Present Pain Reported Location lower back Intensity 5 Scale Used Numeric (0 - 10) Management Techniques Distraction,Modification of Treatment,Re-positioning, Timing of Activity with Medications M4 OT- IP ADL's Start: 08/27/23 15:36 Freq: Status: Active Protocol: Document 08/27/23 15:36 CGR (Rec: 08/27/23 15:47 CGR [id number]) OT [id number] Comments OT Self-Feeding Comments not meal time OT ADL-Grooming Comments OT Grooming Comments not performed OT ADL-Oral Care Comments Oral Care Comments not performed OT ADL-Dressing Comments OT Dressing Comments educated on need for DME but pt appears sleepy. Will perform LB dressing training at next session. OT ADL-Toileting General Evaluation Toileting Ability Minimal Assistance Areas Needing Assistance Manage Clothing Comments OT Toileting Comments Pt needed assist with managing underwear. OT ADL-Bathing Comments OT Bathing Comments not performed M5 OT- IP IADL's Start: 08/27/23 15:36 Freq: Status: Active Protocol: Document 08/27/23 15:36 CGR (Rec: 08/27/23 15:47 CGR [id number]) OT-Instrumental Activities of Daily Living Deficits IADL Deficits Identified No Deficits Home Safety Awareness Awareness of Need for Assistance at Home Good Awareness Ability to Problem Solve Emergency Able to Problem Solve Situations Medication Management Medication Management No Deficits Identified Money Management Money Management No Deficits Identified Meal Preparation Meal Preparation No Deficits Identified 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 M6 OT- IP Functional Cognition Start: 08/27/23 15:36 Freq: Status: Active Protocol: Document 08/27/23 15:36 CGR (Rec: 08/27/23 15:47 CGR [id number]) Cognitive Factors Limiting Selfcare Function Cognitive Ability Level of Alertness Alert Patient Orientation Name,Age,Birthday,Month,Date, Year,Day of Week,Place, Situation Attention Span Ability Capable of Focused Attention, Capable of Sustained Attention Ability to Follow Commands Able to Follow One Step Commands with Increased Time, Able to Follow One Step Commands with Repetition OT- Vision and Hearing OT- Hearing Assessment OT- Hearing Assessment WFL OT- Vision Assessment Visual Acuity Glasses All The Time Visual Attentiveness WFL Occular Pursuits WFL Visual Convergence WFL M7 OT- IP Mobility and Balance Start: 08/27/23 15:36 Freq: Status: Active Protocol: Document 08/27/23 15:36 CGR (Rec: 08/27/23 15:47 CGR [id number]) OT- Bed Mobility Assessment Rolling Type of Rolling Log Rolling,Roll to Right Level of Assistance Standby Assistance Supine to Sit Supine to Sit Assist Minimal Assistance,Head of Bed Elevated Scooting Scooting to Edge of Bed Standby Assistance OT-Transfer Assessment Sit to and From Stand Sit to and from Stand Contact Guard Assistance Transfers Transfer Ability Contact Guard Assistance Technique Transfer Destination Bed,Chair,Toilet Transfer Technique Stand Step Pivot Devices Transfer Assistive Devices Gait Belt,Front Wheeled Walker Comments Mobility Comments Pt stood from bed and ambualted to bathroom for toileting then returned to chair in room. Pt states decreased pain with sitting in chair with feet up OT- Gait Assessment Gait Gait Assistance Required: Contact Guard Assist Assistive Devices Assistive Device Gait Belt,Front Wheeled Walker Comments Gait Ability Comments mobility around the room. OT- Balance Assessment Sitting Balance and Reactions Static Sitting Balance Ability Good Dynamic Sitting Balance Ability Good M8 OT- IP Objective Assessments Start: 08/27/23 15:36 Freq: Status: Active Protocol: Document 08/27/23 15:36 CGR (Rec: 08/27/23 15:47 CGR [id number]) OT Strength Comments Strength Comments 4+/5 as seen with activity OT-Muscle Tone Assessment Muscle Tone WNL Yes OT Sensation Assessment Edema Edema Absent M9 OT- IP Assessment and Plan Start: 08/27/23 15:36 Freq: Status: Active Protocol: Document 08/27/23 15:36 CGR (Rec: 08/27/23 15:47 CGR [id number]) OT Summary Assessment and Plan Potential Rehabilitation Potential Excellent Analytic Complexity at Evaluation Moderate Summary OT Impairments Pain,Balance,Functional Mobility,Grooming,Dressing, Toileting,Bathing,Toilet Transfers,Shower Transfers, Activity Tolerance Progress Towards Goals Slow Progress due to Pain Assessment Summary Pt presents as a moderate complexity evaluation s/p admit for L4-5 TLIF. Pt's pain level is her biggest complaint at this time. Pt will benefit from continued OT services to address LB dressing and home safety. Recommend d/c to home with family support. Goals Grooming Goal Independent Dressing Goal Independent Toileting Goal Independent Bathing Goal Independent Toilet Transfer Goal Independent Shower Transfer Goal Independent Days to Meet Goals 3 Frequency of Treatment Frequency Of Treatment Once a Day Treatment Plan OT Treatment Plan ADL Training,Functional Mobility,Patient/Family Education,Discharge Planning Other Treatment Recommendations and Next shower, ADLs standing, LB Treatment Focus dressing training with DME Discharge Recommendations OT Discharge Recommendations Home with Assistance,Home Health Transportation Needs at Discharge Private Vehicle
[2023-08-27] MEDS: ONDANSETRON 4 MG ODT SL (16:07)
[2023-08-27] MEDS: OXYCODONE IR 10 MG TABLET PO ×2 (17:39→22:05)
[2023-08-27] MEDS: ONDANSETRON 4 MG/2 ML INJ IV (17:39)
[2023-08-27] MEDS: DOCUSATE 100 MG CAPSULE PO (20:12)
[2023-08-27] MEDS: SENNOSIDES 8.6 MG TABLET 17.2 MG PO (20:12)
[2023-08-28] MEDS: TRAMADOL 50 MG TABLET PO ×2 (00:17→10:40)
[2023-08-28 00:41] VITALS: BP 102/59; PULSE 73
[2023-08-28] MEDS: CEFAZOLIN 2 GM/100 ML PREMIX 100 ML IV (01:36)
[2023-08-28] MEDS: ACETAMINOPHEN 325 MG TABLET 650 MG PO ×2 (01:39→08:26)
[2023-08-28 03:47] VITALS: BP 102/59; PULSE 70; RESP 18; TEMP 36.5; O2SAT 96
[2023-08-28] MEDS: OXYCODONE IR 10 MG TABLET PO ×3 (04:57→11:19)
[2023-08-28] MEDS: ONDANSETRON 4 MG ODT SL ×2 (05:00→10:40)
--- NOTE | 2023-08-28 08:00 | PM.PNPO.1 ---
Subjective Subjective Date Patient Seen: 08/28/23 Time Patient Seen: 08:00 Interval history: Patient's pain is 4 to 5/10. Patient has assistance at home. Patient has been out of bed to use the restroom. No fever or chills. No nausea or vomiting. States she has been having some left-sided muscle spasm along the left lower back. Exam Vital Signs (past 8 hours): - 08/28/23 00:41 08/28/23 03:47 Temperature 97.7 F Pulse Rate 73 70 Respiratory Rate 18 Blood Pressure 102/59 L 102/59 L Pulse Oximetry 96 Oxygen Flow Rate 0 Oxygen Delivery Method Room Air Oxygen Flow Rate 0 Narrative Exam Narrative: 62-year-old female resting comfortably in bedside chair in no apparent distress. Neurovascular status is intact bilateral lower extremities. Const General: cooperative and comfortable Nutritional Appearance: average body habitus Orientation: alert Resp Effort & Inspection: normal respiratory effort and able to speak in complete sentences PFSH Medical History History of COVID-19 (2021) History of hemochromatosis Spinal stenosis Acid reflux RAY (obstructive sleep apnea) Raynaud's phenomenon Fibromyalgia Diverticulitis Surgical History (Updated 08/20/23 @ 10:11 by Namrata Mendosa RN) Hx of tonsillectomy History of partial hysterectomy Hx of abdominal surgery (07/2022) Social History household members: none Smoking Status: Former smoker alcohol intake: never Assessment & Plan Post-op Postoperative Procedures: Procedures Operation Date: 08/27/23 09:30 Actual Procedure Side Surgeon p L4-5 TLIF Prince Ho MD Postoperative day: 1 Postoperative status: doing well Postoperative plan: routine post-op care Postoperative plan narrative: Disposition possibly home today or tomorrow Quality VTE Deep Vein Thrombosis/Pulmonary Embolism Present on Admission: No
[2023-08-28] MEDS: ONDANSETRON 4 MG/2 ML INJ IV (08:25)
[2023-08-28] MEDS: DOCUSATE 100 MG CAPSULE PO (08:26)
--- NOTE | 2023-08-28 10:02 | PT.IIE ---
Current Diagnoses Spondylolisthesis, lumbar region (08/27/23) Surgery Performed Operation Date: 08/27/23 09:30 Actual Procedures p L4-5 TLIF - Prince Ho MD Surgical History (Last Updated 08/20/23 @ 10:11 by Namrata Mendosa RN) History of partial hysterectomy Hx of abdominal surgery (07/2022) Hx of tonsillectomy Medical History (Last Reviewed 08/28/23 @ 08:01 by Bull Callaway PA-C) Acid reflux Diverticulitis Fibromyalgia History of COVID-19 (2021) History of hemochromatosis RAY (obstructive sleep apnea) Raynaud's phenomenon Spinal stenosis Physical Therapy Inpatient Evaluation/Re-Eval M1 PT/OT-IP Prior Functional Status Start: 08/27/23 15:36 Freq: NEEDED Status: Discharge Protocol: Document 08/27/23 15:36 CGR (Rec: 08/27/23 15:47 CGR [id number]) Medical Review Prior Functional Status Medical History Reviewed Yes Communication Pt is an effective verbal communicator Mobility and Gait Pt was IND without AD at baseline. 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 Social History Household Members none Living Arrangements House Number of Floors (Floors) Two Floors Number of Stairs To Enter/Railing? 2 steps to enter without rails . 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 Prior Functional Level (Other details) She has two sisters who plan to stay with her after discharge to assist her as needed She has large dogs Social History Household Members none Living Arrangements House Number of Floors (Floors) One Floor Number of Stairs To Enter/Railing? 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 Additional Social History Comment she works as credit administration officer she has a back brace to use from surgeon if needed M2 PT-IP Current Condition Start: 08/28/23 08:47 Freq: NEEDED Status: Discharge Protocol: Document 08/28/23 10:02 DLM (Rec: 08/28/23 13:00 DL [id number]) Physical Therapy Current Condition Current Condition Evaluation Date 08/28/23 Treatment Diagnosis L4-5 TLIF, impaired mobility Onset Date 08/27/23 M3 PT-IP Subjective Start: 08/28/23 08:47 Freq: NEEDED Status: Discharge Protocol: Document 08/28/23 10:02 DLM (Rec: 08/28/23 13:00 DL [id number]) Subjective Physical Therapy Visit Type Type Initial Evaluation Visit Start Time 09:10 Visit Stop Time 10:02 Number of COMMUNICATIONS OFFICER Visits 0 Physical Therapy Visit Comments Patient Comments She reports her Sisters will be staying with her to help at home. Patient Goals Discharge home Therapy Pain Assessment Pain When Pain Assessed During Mobility Pain Present Pain Present Pain Reported Location lower back Intensity 5 Scale Used Numeric (0 - 10) Description Aching,Spasm,Tender,With Movement Pain Behaviors Facial Grimacing,Guarding Pain Management Techniques Re-positioning,Timing of Activity with Medications M4 PT-IP Mobility and Gait Start: 08/28/23 08:47 Freq: NEEDED Status: Discharge Protocol: Document 08/28/23 10:02 DLM (Rec: 08/28/23 13:00 DL [id number]) PT-Bed Mobility Assessment Rolling Type of Rolling Bilateral Level of Assist Independent Supine to Sit Supine to Sit Independent Sit to Supine Sit to Supine Independent Scooting Scooting to Edge of Bed Independent PT-Transfer Assessment Sit to and From Stand Sit to and from Stand Independent Equipment Transfer Assistive Device Gait Belt,Front Wheeled Walker Transfers Transfer Destination Bed,Chair Transfer Technique Stand Step Pivot Transfer Ability Level of Assist Independent,Use of Upper Extremities Comments Mobility Comments verbal cues provided during mobility for use of spine precautions, answered pt's questions Gait Assessment Gait Gait Assistance Required: Standby Assistance Distance (Feet) 200 Able to Maintain Weight Bearing Status Yes During Gait Assistive Devices Assistive Device Gait Belt,Front Wheeled Walker Gait Deviations General Gait Pattern Decreased Stride Length Factors Limiting Gait Function Factors Limiting Gait Function Decreased Activity Tolerance, Decreased Strength,Pain,Poor Balance Comments Gait Comments pt needs FWW for gait with mild to moderate UE pressure on the FWW. Stair Climbing Assessment Evaluation Level of Assist On Stairs Minimal Assistance Technique/Endurance Stair Climbing Direction Ascend and Descend Stair Climbing Technique Step to Step Number of Steps Climbed 1 Query Text: Stair Climbing Set # Repetitions (reps) 1 Comments Stair Climbing Comments up down step without rail with hand held min assist. Up/down 3 steps with 1-2 rails with step-to pattern and stand by assist. Pt reports increased back pain doing steps. PT-Balance Assessment Sitting Balance and Reactions Static Sitting Balance Ability Normal Dynamic Sitting Balance Ability Normal Standing Balance and Reactions Static Standing Balance Ability Good Dynamic Standing Balance Ability Good Device Used FWW M5 PT-IP Objective Assessments Start: 08/28/23 08:47 Freq: NEEDED Status: Discharge Protocol: Document 08/28/23 10:02 DLM (Rec: 08/28/23 13:00 [facility] [id number]) Orientation Orientation/Cognition Level of Alertness Alert Orientation Name,Age,Birthday,Month,Date, Year,Day of Week,Place, Situation Language Function Ability No Deficits Noted Safety Awareness Understands Safety Issues Memory Description No Deficits Noted Comments glasses use this visit Gross Range of Motion Upper Extremity ROM Assessment Within Functional Limits Lower Extremity ROM Assessment Within Functional Limits Strength Upper Extremity Strength Assessment Within Functional Limits Lower Extremity Strength Assessment Within Functional Limits Comments Strength Comments spine/trunk limited by post-op precautions Coordination Assessment Gross Coordination Gross Coordination WNL Sensation Assessment Sensation Gross Sensation WNL Muscle Tone Muscle Tone WNL Yes Other Assessments Other Other Assessments pt reports some cramping in low back area today M6 PT-IP Treatment Start: 08/28/23 08:47 Freq: NEEDED Status: Discharge Protocol: Document 08/28/23 10:02 DLM (Rec: 08/28/23 13:00 DL [id number]) Physical Therapy Treatment Education Education Provided Precautions,Safety Other Treatments Other Treatment Performed Her two Sisters are present this visit and participated in education and training Her Sister demonstrated the physical ability to help her up the steps to enter the house without a rail. Occupational Therapy is providing pt with written precaution information for home use. M7 PT-IP Assessment and Plan Start: 08/28/23 08:47 Freq: NEEDED Status: Discharge Protocol: Document 08/28/23 10:02 DLM (Rec: 08/28/23 13:00 DLM [id number]) PT Summary Assessment and Plan Potential Rehabilitation Potential Good Status of Condition at Evaluation Evolving Summary Impairments Pain,ROM,Strength,Balance,Bed Mobility,Transfers,Gait, Activity Tolerance Progress Towards Goals Safe For Discharge Assessment Summary Angela is alert and sitting up in the chair this visit. She has been getting up with nursing. She demonstrates safe mobility and gait with use of the FWW. Educated pt and her Sisters in spine precautions this visit. Answered their questions. Her Sister can provide physical help to get her up the stairs to enter the house that have no rail. Pt plans on staying on the main level of the house at discharge to better manage her pain. She can physically do stairs with rails but she does have increased back pain with stairs. Pt appears safe to discharge home with her Sisters to help when she is medically stable. Pt cleared by Physical Therapy for discharge home. Frequency of Treatment Frequency Of Treatment Discharge Treatment Plan Other Recommendations and Next Treatment training completed this visit Focus Precautions Lumbar Precautions Log Roll,No Twisting,Limit Bending,Lifting Restriction of 10 lbs,Gait Belt above Incisional Area Recommendations To Nursing Amount of Assist Needed Standby Assistance Discharge Recommendations PT Discharge Recommendations Home with Assistance Other Discharge Recommendations Sister will provide assist as needed Transportation Needs at Discharge Private Vehicle
--- NOTE | 2023-08-28 10:33 | P.DS_ITS ---
History of Present Illness History of Present Illness Date Patient Seen: 08/28/23 Time Patient Seen: 10:34 Chief complaint: Back pain back pain Narrative: See progress note Discharge Providers Provider Discharge Date: 08/28/23 Primary care physician: Naldo Angela MD Consults: 08/27/23 14:01 Consult to Occupational Therapy Evaluate & Treat Comment: Physician Instructions: Evaluate and treat Consult to Physical Therapy Evaluate & Treat Comment: Physician Instructions: Evaluate and Treat Discharge provider: Bull Callaway PA-C Summary Hospital Course Discharge Diagnosis: 1. L4-5 spondylolisthesis 2. L4-5 spinal stenosis with radiculopathy Hospital Course: 1. L4-5 Postero-lateral and posterior interbody fusion 2. L4-5 interbody cage placement. 3. L4-5 decompressive laminectomy with bilateral facetecomies 4. L4-5 Posterior non-segmental instrumentation 5. [place] of bone marrow from iliac crest 6. Utilization of microsurgical technique and operating microscope Same procedure as scheduled: Yes Indications: Patient has been having chronic back pain and worsening lumbar radiculopathy. Patient failed multiple conservative management with worsening pain weakness and numbness in her lower extremity. Patient has been having difficulty performing activity of daily living. After discussing risks benefits of treatment options, patient elected proceed with surgery. Surgeon: Prince Ho Shell Trim Tool Setter: Nanci Rowe Click Yes if Unassisted: No Anesthesia Type: General Operative Notes Closure Type: primary Specimen(s): none sent Prosthetic devices, grafts, tissues, transplants, or devices: Globus revolve screws, Rise cage Estimated Blood Loss (mL): 50 Blood products transfused: none Patient admitted for the above-mentioned procedure. Patient consented to the same. Patient underwent L4-L5 fusion August 27, 2023. Patient back in her room recovering well as in stable condition. Patient mobilize with physical therapy. Patient has assistance at home. Pain is well-controlled. Discharge home today in stable condition Exam Vital Signs (past 8 hours): - 08/28/23 03:47 Temperature 97.7 F Pulse Rate 70 Respiratory Rate 18 Blood Pressure 102/59 L Pulse Oximetry 96 Oxygen Flow Rate 0 Oxygen Delivery Method Room Air Oxygen Flow Rate 0 Narrative Exam Narrative: See progress note [facility] Medical History History of COVID-19 (2021) History of hemochromatosis Spinal stenosis Acid reflux RAY (obstructive sleep apnea) Raynaud's phenomenon Fibromyalgia Diverticulitis Surgical History (Updated 08/20/23 @ 10:11 by Namrata Mendosa RN) Hx of tonsillectomy History of partial hysterectomy Hx of abdominal surgery (07/2022) Social History household members: none Smoking Status: Former smoker alcohol intake: never Discharge Assessment & Plan Assessment and Plan Assessment: Patient progressing as expected Plan of Treatment: Multimodal pain management, oxycodone 10 mg as needed pain, tramadol as needed breakthrough pain Hydroxyzine as needed nausea/muscle spasms Limit bending, twisting, lifting Keep dressing clean and dry Follow up outpatient orthopedic clinic in 2 weeks Discharge home today. Discharge Plan Discharge orders & Medications Discharge Orders: Discharge (Order); Ordered 08/28/23 Ordered By: Bull Callaway Prescriptions: New acetaminophen 325 mg Tablet 650 mg PO Q6H PRN (Reason: Fever/Mild Pain (1-3)) Qty: 60 0RF hydroxyzine HCl 25 mg Tablet 25 mg PO Q4H PRN (Reason: Nausea/muscle spasms) Qty: 40 0RF tramadol 50 mg Tablet 50 mg PO Q4HR PRN (Reason: Pain, Moderate (4-6)) Qty: 20 0RF oxycodone 10 mg Tablet 10 mg PO Q3H PRN (Reason: Pain, Severe (7-10)) Qty: 30 0RF Continued lidocaine 5 % adhesive patch,medicated 1 patch topical DAILY PRN (Reason: pain (scale score 4-6)) Qty: 30 0RF Rx Instructions: leave on most painful area for up to 12 hrs then remove Discontinued ibuprofen 200 mg Tablet 400 - 600 mg PO TID cyclobenzaprine 5 mg tablet 5 mg PO ONCE PM PRN (Reason: muscle spasm) Follow up/Referrals: Prince Ho MD [Physician] - 09/11/23 11:00 am (Follow up w/ Nanci Rowe PA-C, at [facility].) Naldo Angela MD [Primary Care Provider] - Diet/Activity/Treatments Diet: Diet as Tolerated Activity: No deep bending or twisting at the waist. No lifting more than 10 pounds. Cold/Heat Therapy: Heating pad to low back as needed for pain. Skin/Wound/Dressing Care Report to your healthcare provider any signs of infection, such as:: chills, fever, night sweats, unusual drainage and unusual redness Dressing: May shower; keep dressing as dry as possible. If dressing becomes wet or dirty, may remove and replace with clean, dry gauze. No bathing or otherwise soaking incisions. Do not apply any creams, lotions, or ointments to incisions. Special Rehabilitation Services Rehab type: Physical therapy, Occupational therapy, Outpatient therapists and Home health Visit Report/Discharge Packet Instructions: DI for Prescription Opioid Use, DI for Transforaminal Lumbar Interbody Fusion Stand Alone Forms: Patient Portal/API, Surgery Discharge Discharge Data Primary Care Provider: Naldo Angela Attending Provider: Prince Ho VTE Deep Vein Thrombosis/Pulmonary Embolism Present on Admission: No
[2023-08-28] MEDS: hydrOXYzine HCL 25 MG TABLET PO (10:40)
--- NOTE | 2023-08-28 11:03 | CM.DANOTE ---
DCP Assessment Note Pt is a 62yo F, resident of [place], s/p L4-5 TLIF, dx: spondyloisthesis. Pt lives alone, has both sisters, Lorenza and Khushi (DPOA, Emergency Contact, respectively) at bedside who will be primary support for recovery. PCP: Naldo Angela Payer: [employer] Pay Reviewed chart and team rounds for pt's medical status and initial discharge needs. SCIENTIFIC DATABASE CURATOR met w/patient and sisters, Lorenza and Khushi, at bedside; introduced self and role. Pt was alert and oriented, sitting upright in chair. Pt was agreeable to discharge plans and preparing to leave after discharge education and lunch. Pt confirmed having a FWW and walking cane available for use at home. Pt denied any pending discharge needs at this time. Plan: Pt will dc home with assistance today. Following if any discharge needs arise. NEVIN [place] Discharge Planning/Care Management Advanced directive, confirm from FAMILY Start: 08/27/23 14:08 Freq: Q24H Status: Active Protocol: Document 08/27/23 14:08 MM (Rec: 08/27/23 14:15 MM [id number]) Advance Directive, confirm on record Time 14:15 Person contacted pt Copy received No CM Discharge Assessment Start: 08/28/23 11:00 Freq: Status: Active Protocol: Document 08/28/23 11:01 MW (Rec: 08/28/23 11:03 MW [id number]) Discharge Planning Assessment Assigned Fit Model NEVIN [place] DPJOHANNE/Assigned Designee Name Sister Puri Contact Information [phone] Advance Directives? Yes Advance Directives on File No History Provided By Patient,Family Member,Medical Record Expected Length of Stay 1 Has Patient been admitted in last 30 No days? Prior Living Arrangements House Household Members none Type of transporation used prior to Drives own vehicle admit Independent with ADL's Yes Is patient alert and oriented? Yes DME Already Rented / Owned FWW / Walker,Cane Barriers to Discharge No Discharge Plan Home Transportation Arrangement Pt's sisters will transport pt home. If patient plan is home with home health No : Has signed face to face form been completed? Whiteboard Updated in Patient Room with Yes name and ext. # of Fit Model Please Provide Date Initial DC 08/28/23 Assessment Was Performed Next Review Type Continued Stay Review
--- NOTE | 2023-08-28 14:19 | OT.IP.TRT ---
Current Diagnoses Spondylolisthesis, lumbar region (08/27/23) Surgery Performed Operation Date: 08/27/23 09:30 Actual Procedures p L4-5 TLIF - Prince Ho MD Occupational Therapy Treatment Note M2 OT-IP Current Condition Start: 08/27/23 15:36 Freq: Status: Discharge Protocol: Document 08/27/23 15:36 CGR (Rec: 08/27/23 15:47 CGR [id number]) Occupational Therapy Current Condition Current Condition Evaluation Date 08/27/23 Treatment Diagnosis L4-5 TLIF Diagnosis Onset Date 08/27/23 Post Operative Precautions Lumbar Precautions Log Roll,No Twisting,Limit Bending,Lifting Restriction of 10 lbs,Gait Belt above Incisional Area Other Precautions Pt states that she has a brace that Dr. Ho gave her for at home because she has big dogs. M3 OT- IP Subjective and Pain Start: 08/27/23 15:36 Freq: Status: Discharge Protocol: Document 08/28/23 10:48 GRIFFIN (Rec: 08/28/23 14:19 GRIFFIN [id number]) OT- Subjective Occupational Therapy Visit Type Type Treatment Note Visit Start Time 10:12 Visit Stop Time 10:48 Notes Pt was reclined in bed on entrance of OT with sisters present. Pt was agreeable to participating in therapy. Occupational Therapy Visit Comments Patient Comments Pt was able to state her lumbar precautions and discussed her intentions for shower t/f at home that would meet those restrictions. OT Pain Assessment Pain When Pain Assessed At Rest Pain Present Pain Present Pain Reported Location lower back Intensity 2 Scale Used Numeric (0 - 10) M4 OT- IP ADL's Start: 08/27/23 15:36 Freq: Status: Discharge Protocol: Document 08/28/23 10:48 GRIFFIN (Rec: 08/28/23 14:19 GRIFFIN [id number]) OT ADL-Dressing General Eval Upper Body Dressing Ability Independent Lower Body Dressing Ability Standby Assistance Areas Needing Assistance Retrieving/Set-up of Clothing, Socks Assistive Devices Dressing Assistive Devices Transmitter Engineer,Sock Aid Comments OT Dressing Comments OT educated pt on use of bead wrapper and sockaid for LB dressing. Pt was able to then use these devices to don B socks, underwear, and pants while maintaining lumbar precautions. Pt performed UB dressing while standing and maintaining lumbar precautions . OT ADL-Bathing Comments OT Bathing Comments pt declined, preferring to perform once d/c home M5 OT- IP IADL's Start: 08/27/23 15:36 Freq: Status: Discharge Protocol: Document 08/27/23 15:36 CGR (Rec: 08/27/23 15:47 CGR [id number]) OT-Instrumental Activities of Daily Living Deficits IADL Deficits Identified No Deficits Home Safety Awareness Awareness of Need for Assistance at Home Good Awareness Ability to Problem Solve Emergency Able to Problem Solve Situations Medication Management Medication Management No Deficits Identified Money Management Money Management No Deficits Identified Meal Preparation Meal Preparation No Deficits Identified Transit Mixer Operator Transit Mixer Operator No Deficits Identified Driving Driving Comments 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 M6 OT- IP Functional Cognition Start: 08/27/23 15:36 Freq: Status: Discharge Protocol: Document 08/27/23 15:36 CGR (Rec: 08/27/23 15:47 CGR [id number]) Cognitive Factors Limiting Selfcare Function Cognitive Ability Level of Alertness Alert Patient Orientation Name,Age,Birthday,Month,Date, Year,Day of Week,Place, Situation Attention Span Ability Capable of Focused Attention, Capable of Sustained Attention Ability to Follow Commands Able to Follow One Step Commands with Increased Time, Able to Follow One Step Commands with Repetition OT- Vision and Hearing OT- Hearing Assessment OT- Hearing Assessment WFL OT- Vision Assessment Visual Acuity Glasses All The Time Visual Attentiveness WFL Occular Pursuits WFL Visual Convergence WFL M7 OT- IP Mobility and Balance Start: 08/27/23 15:36 Freq: Status: Discharge Protocol: Document 08/28/23 10:48 GRIFFIN (Rec: 08/28/23 14:19 GRIFFIN [id number]) OT- Bed Mobility Assessment Rolling Type of Rolling Log Rolling,Roll to Left Level of Assistance Independent Supine to Sit Supine to Sit Assist Independent Scooting Scooting to Edge of Bed Independent OT-Transfer Assessment Sit to and From Stand Sit to and from Stand Standby Assistance Transfers Transfer Ability Standby Assistance Technique Transfer Destination Bed,Chair Transfer Technique Stand Step Pivot Devices Transfer Assistive Devices Gait Belt,Front Wheeled Walker Comments Mobility Comments Pt stood and amb with FWW approximately 30' to the chair with S. Pt performs functional mobility tasks slowly and deliberately while maintaining precautions. OT- Gait Assessment Gait Gait Assistance Required: Standby Assistance Distance (Feet) 30 Assistive Devices Assistive Device Gait Belt,Front Wheeled Walker OT- Balance Assessment Sitting Balance and Reactions Static Sitting Balance Ability Good Dynamic Sitting Balance Ability Good Standing Balance and Reactions Static Standing Balance Ability Good M8 OT- IP Objective Assessments Start: 08/27/23 15:36 Freq: Status: Discharge Protocol: Document 08/27/23 15:36 CGR (Rec: 08/27/23 15:47 CGR [id number]) OT Strength Comments Strength Comments 4+/5 as seen with activity OT-Muscle Tone Assessment Muscle Tone WNL Yes OT Sensation Assessment Edema Edema Absent M9 OT- IP Assessment and Plan Start: 08/27/23 15:36 Freq: Status: Discharge Protocol: Document 08/28/23 10:48 TJOHDEACONTON (Rec: 08/28/23 14:19 TJOHNSTON [id number]) OT Summary Assessment and Plan Potential Rehabilitation Potential Excellent Summary OT Impairments Pain,Balance,Functional Mobility,Grooming,Dressing, Toileting,Bathing,Toilet Transfers,Shower Transfers, Activity Tolerance Progress Towards Goals Progressing Toward Goals,Safe For Discharge Assessment Summary Pt was pleasant and cooperative with OT treatment. OT reviewed pt's lumbar precaution packet and performed extensive education on each aspect of the packet. Pt asked many questions and verbalized understanding after education. OT also educated pt on AE for LB dressing. Pt demonstrated proficiency with these during dressing tasks. Pt demonstrated good safety awareness and progress toward goals. Cont per POC. Goals Grooming Goal Independent Dressing Goal Independent Toileting Goal Independent Bathing Goal Independent Toilet Transfer Goal Independent Shower Transfer Goal Independent Days to Meet Goals 3 Frequency of Treatment Frequency Of Treatment Once a Day Treatment Plan OT Treatment Plan ADL Training,Functional Mobility,Patient/Family Education,Discharge Planning Other Treatment Recommendations and Next shower, ADLs standing, LB Treatment Focus dressing training with DME Discharge Recommendations OT Discharge Recommendations Home with Assistance,Home Health Transportation Needs at Discharge Private Vehicle
== END 2023-08-28 11:45 | disposition home or self-care (01) ==
LOC: OR 07:51 → AC 07:52
PROVIDERS: PCP Internal Medicine; Referring Provider Orthopaedic Surgery Orthopaedic Surgery of the Spine; Visit Provider Orthopaedic Surgery Orthopaedic Surgery of the Spine
PROC: (CPT 22633; principal; 2023-08-27 09:30)
DX: M48.062 Spinal stenosis, lumbar region with neurogenic claudication (principal); M43.16 Spondylolisthesis, lumbar region; M54.16 Radiculopathy, lumbar region
CPT/HCPCS: 22633; 63052; 22853; 22840; 20939; 72100; 76000; 97162; 97166; 97530; 97535; A9270; C1713; C1831; C9290; J0171; J0330; J0690; J1100; J1170; J2405; J2704; J3010; J3410

== ENCOUNTER → 2024-11-03 13:51 | Outpatient (CLI) | payer OTHER, SELFPAY ==
[2023-08-27 08:32] VITALS: BMI 29.9
--- NOTE | 2024-11-03 13:55 | DI.RAD.S_ITS ---
PROCEDURE: XR LUMBAR SPINE 2-3V INDICATIONS: Low back injury, hx of spinal cage TECHNIQUE: 3 views of the lumbar spine were acquired. COMPARISON: None. FINDINGS: Bones: 5 [id number] vertebrae are present. L4-5 posterior spinal fixation discectomy. There is normal bony alignment. No vertebral body compression fractures. No suspicious bony lesions. Mild degenerative changes of the lumbar spine. Soft tissues: Overlying bowel gas pattern is normal. No suspicious soft tissue calcifications. Atherosclerotic vascular calcifications. IMPRESSION: Mild degenerative changes status post L4-5 posterior spinal fixation. No acute osseous abnormalities are identified. Dictated by: Oniel Saleh M.D. on 11/03/2024 at 14:17 Approved by: Oniel Saleh M.D. on 11/03/2024 at 14:18
== END ==
LOC: RAD 13:54
PROVIDERS: PCP Internal Medicine; Referring Provider Physician Assistant; Visit Provider Physician Assistant
DX: M54.50 Low back pain, unspecified (principal); I70.90 Unspecified atherosclerosis; Z98.890 Other specified postprocedural states; Z98.1 Arthrodesis status
CPT/HCPCS: 72100